=== PATIENT | female | born 1995 ===

== ENCOUNTER 2021-04-13 00:10 | Inpatient (IN) ==
[2021-04-13 01:04] LABS: Basophils % 0.4 % (0.0-0.8); Eosinophils # 0.1 10*3/uL (0.0-0.87); Eosinophils % 0.7 % (0.00-10.9); Hemoglobin 10.2 GM/DL (12.0-16.0); Immature Granulocytes % 0.6 %; Immature Granulocytes Absolute 0.05 #; Lymphocytes # 1.2 10*3/uL (1.4-4.0); Lymphocytes % 14.3 % (21.3-54.2); Mean Corpuscular HGB Conc 31.9 GM/DL (32-36); Mean Corpuscular Volume 89.1 FL (87-102); Mean Platelet Volume 9.9 FL (9.6-12.0); Platelet Count 343 T/CUMM (130-400); Red Blood Count 3.59 MC/CUMM (3.8-5.5); Red Cell Distribution Width 14.7 % (9.3-17.3)
[2021-04-13 01:21] LABS: Albumin 2.5 G/DL (3.4-5.0); Bilirubin,Total 0.4 MG/DL (0.20-1.00); Calcium 8.9 MG/DL (8.5-10.1); Osmolality,Calculated 274.7 MOS/KG (273-304); Potassium 3.7 MMOL/L (3.5-5.1)
[2021-04-13 01:34] LABS: Bacteria,Urine Occasional /HPF (Few); Bilirubin,Urine Negative (Negative); Blood, Urine Negative (Negative); Glucose,Urine (UA) Negative (Negative); Ketones,Urine Negative (Negative); Mucus,Urine Many /LPF (Occasional); Nitrite,Urine Negative (Negative); Protein,Urine 100 MG/DL; RBC,Urine 5 /HPF (0-4); Squamous Epithelial Cell,Urine Occasional /HPF (0-10); Urine Appearance CLEAR (Clear); Urine Color Amber (Yellow)
[2021-04-13] MEDS: LACTATED RINGERS 1,000 ML IV SCH ×2 (08:15→14:18)
[2021-04-13] MEDS: OXYTOCIN/LR 20 UNIT/1,000 ML BAG IV SCH (10:00)
[2021-04-13] MEDS: ONDANSETRON 4 MG/2 ML VIAL IV PRN (18:01)
[2021-04-13] MEDS: MEPERIDINE 50 MG/1 ML VIAL IV PRN (18:05)
[2021-04-14] MEDS: ONDANSETRON 4 MG/2 ML VIAL IV PRN (00:46)
[2021-04-14] MEDS: MEPERIDINE 50 MG/1 ML VIAL IV PRN ×3 (00:48→08:36)
[2021-04-14] MEDS: LACTATED RINGERS 1,000 ML IV SCH (02:02)
[2021-04-14] MEDS ORDERED: METHYLERGONOVINE 0.2 MG/1 ML AMP ONE ×2 (07:12→12:43)
[2021-04-14] MEDS ORDERED: OXYTOCIN/LR 30 UNIT/1,000 ML BAG IV ONE ×2 (07:14→13:00)
[2021-04-14] MEDS ORDERED: NALOXONE 0.4 MG/ML VIAL IV PRN (09:27)
[2021-04-14] MEDS ORDERED: hydrOXYzine HCL 25 MG/1 ML VIAL IM PRN (09:27)
[2021-04-14] MEDS ORDERED: LACTATED RINGERS 1,000 ML IV ONE (09:27)
[2021-04-14] MEDS ORDERED: FAMOTIDINE 20 MG/2 ML VIAL IV ONE ×2 (09:27→12:54)
[2021-04-14] MEDS ORDERED: CITRIC ACID/SODIUM CITRATE 30 ML UDCUP PO ONE ×2 (09:27→12:54)
[2021-04-14] MEDS ORDERED: diphenhydrAMINE 50 MG/1 ML VIAL IV PRN ×2 (09:27)
[2021-04-14] MEDS ORDERED: ePHEDrine 50 MG/ML VIAL IV PRN (09:27)
[2021-04-14] MEDS ORDERED: fentaNYL 2 MCG/ROPIV 0.2% EPID 100 ML EPIDURAL SCH (09:30)
[2021-04-14 12:18] LABS: Bacteria,Urine Occasional /HPF (Few); Bilirubin,Urine Negative (Negative); Blood, Urine Small mg/dL (Negative); Glucose,Urine (UA) Negative (Negative); Ketones,Urine 80 mg/dL (Negative); Mucus,Urine Few /LPF (Occasional); Nitrite,Urine Negative (Negative); Protein,Urine 100 MG/DL; RBC,Urine 21 /HPF (0-4); Squamous Epithelial Cell,Urine Occasional /HPF (0-10); Urine Appearance CLEAR (Clear); Urine Color Amber (Yellow); Urine Specific Gravity 1.024 (1.001-1.035)
[2021-04-14] MEDS ORDERED: miSOPROStoL 200 MCG TABLET ONE (12:42)
[2021-04-14] MEDS ORDERED: SODIUM CHLORIDE 0.9% 0 ML IV ONE (12:43)
[2021-04-14] MEDS ORDERED: TRANEXAMIC ACID 1,000 MG/10 ML VIAL ONE (12:43)
[2021-04-14] MEDS ORDERED: CARBOPROST TROMETHAMINE 250 MCG/ML AMP IM ONE (12:43)
[2021-04-14] MEDS ORDERED: ceFAZolin 3,000 MG in SYRINGE 1 EACH IV ONE (12:54)
[2021-04-14] MEDS ORDERED: OXYTOCIN 10 UNIT/ML VIAL IM ONE (12:55)
[2021-04-14] MEDS ORDERED: METHYLERGONOVINE 0.2 MG/1 ML AMP IM ONE (13:55)
[2021-04-14] MEDS ORDERED: SODIUM CHLORIDE 0.9% 1,000 ML IV PRN ×2 (14:25→15:45)
[2021-04-14 14:30] LABS: Cord Arterial Blood HCO3 26.3 MMOL/L
[2021-04-14 14:33] LABS: Cord Venous Blood HCO3 23.7 MMOL/L; Cord Venous Blood PCO2 41.3 MMHG; Cord Venous Blood PO2 31.7 MMHG
[2021-04-14] MEDS: OXYTOCIN/LR 20 UNIT/1,000 ML BAG IV SCH (17:54)
[2021-04-14] MEDS ORDERED: BENZOCAINE 20%/MENTHOL 0.5% SPRAY 56 GM CAN TOP PRN (18:48)
[2021-04-14 20:00] LABS: Hematocrit 26.3 VOL% (35.7-47.0)
[2021-04-14] MEDS: DOCUSATE SODIUM 100 MG CAPSULE PO SCH (20:13)
[2021-04-14] MEDS: IBUPROFEN 800 MG TABLET PO PRN (23:19)
[2021-04-15 06:31] LABS: Hemoglobin 6.6 GM/DL (12.0-16.0); Red Blood Count 2.29 MC/CUMM (3.8-5.5); White Blood Count 14.4 T/CUMM (4-12)
[2021-04-15 06:32] LABS: Basophils % 0.3 % (0.0-0.8); Eosinophils # 0.1 10*3/uL (0.0-0.87); Eosinophils % 0.3 % (0.00-10.9); Hematocrit 20.8 VOL% (35.7-47.0); Immature Granulocytes % 0.8 %; Immature Granulocytes Absolute 0.11 #; Lymphocytes # 1.7 10*3/uL (1.4-4.0); Lymphocytes % 11.6 % (21.3-54.2); Mean Corpuscular HGB Conc 31.7 GM/DL (32-36); Mean Corpuscular Volume 90.8 FL (87-102); Mean Platelet Volume 10.9 FL (9.6-12.0); Monocytes % 9.8 % (1.7-12.7); Neutrophils % 77.2 % (38.7-73.9); Platelet Count 215 T/CUMM (130-400)
[2021-04-15 06:55] LABS: Band Neutrophils 2 % (0-10); Lymphocytes 7 % (20-55); Segmented Neutrophils 83 % (50-85); Total Cells Counted 100
[2021-04-15 06:56] LABS: Microcytosis 1+; Platelet Estimate Normal
[2021-04-15] MEDS ORDERED: SODIUM CHLORIDE 0.9% 1,000 ML IV PRN (07:26)
[2021-04-15] MEDS: DOCUSATE SODIUM 100 MG CAPSULE PO SCH ×2 (08:54→19:32)
[2021-04-15 16:07] LABS: Hemoglobin 8.5 GM/DL (12.0-16.0)
[2021-04-15] MEDS: IBUPROFEN 800 MG TABLET PO PRN (19:32)
[2021-04-15] MEDS: FERROUS SULFATE 325 MG TABLET PO SCH (22:09)
[2021-04-16] MEDS: DOCUSATE SODIUM 100 MG CAPSULE PO SCH ×2 (00:30→09:02)
[2021-04-16] MEDS: FERROUS SULFATE 325 MG TABLET PO SCH (09:02)
[2021-04-16 10:57] VITALS: BP 147/88
[2021-04-16] MEDS ORDERED: MEASLES/MUMPS/RUBELLA VACCINE 0.5 ML VIAL SUBCUT ONE (11:35)
== END 2021-04-16 12:55 | disposition home or self-care (01) | DRG 560 ==
LOC: N.LD 00:10 → N.OB 04-14 18:04
PROVIDERS: ADMIT Obstetrics & Gynecology; ATTEND Obstetrics & Gynecology